=== PATIENT | male | born 1980 | race Two or more races ===

== ENCOUNTER → 2024-08-02 | Outpatient (BNVA) | payer MEDICAID, SELFPAY | END | disposition home or self-care (01) | PROVIDERS: PCP Registered Nurse Community Health; Referring Provider Registered Nurse Community Health; Visit Provider Urology | DX: N52.9 Male erectile dysfunction, unspecified (principal); F52.4 Premature ejaculation; N40.0 Benign prostatic hyperplasia without lower urinary tract symptoms | CPT/HCPCS: 81003; 99212; G0463 ==

== ENCOUNTER 2024-11-04 12:09 | Emergency (ER) | payer MEDICAID, SELFPAY ==
[2024-11-04 12:10] VITALS: BMI 28.3
[2024-11-04 12:38] VITALS: BP 120/78; PULSE 121; RESP 19; TEMP 39.6; O2SAT 97
--- NOTE | 2024-11-04 12:45 | XR_ITS ---
Examination: CT abdomen and pelvis without contrast. Coronal 3-D reconstructions. Sagittal 2-D reconstructions. Date and time of exam:November 04, 2024, 1419 hours, comparison August 12, 2010 INDICATIONS: Bilateral flank pain today, history kidney stones CTDI: vol (mGy): 6.54 DLP: (mGycm): 421 Technique: Axial images of the abdomen have been obtained, 3 mm slice thickness Intravenous contrast material has not been administered. Low dose protocols were performed. One or more of the following dose reduction techniques were used; automated exposure control, adjustment of the mA and/or KV according to patient size, use of iterative reconstruction technique. Findings: No focal liver or splenic lesion No gallstones No pancreatic or adrenal mass Numerous bilateral renal calculi ranging in size from 2 to 6 mm, no hydronephrosis or ureteral calculi Aorta normal size Normal appendix No bowel obstruction or diverticulitis No bladder mass or bladder calculi Transverse prostate dimension 4.9 cm IMPRESSION: Numerous bilateral nonobstructing renal calculi
[2024-11-04] MEDS: SODIUM CHLORIDE 0.9% 1000 ML 1,000 ML 999 ML IV (13:04)
[2024-11-04 13:23] LABS: Basophils # (Auto) 0.0 Thou/mm3 (0.0-0.2); Basophils % (Auto) 0 % (0-2.5); Eosinophils # (Auto) 0.0 Thou/mm3 (0.0-0.5); Eosinophils % (Auto) 0 % (0-10); Hematocrit 48.0 % (41.0-53.0); Hemoglobin 16.6 g/dL (13.5-16.0); Immature Granulocytes Auto 0.03 Thou/mm3 (0.00-0.00); Lymphocytes # (Auto) 0.7 Thou/mm3 (1.0-4.8); Lymphocytes % (Auto) 7 % (10-50); Mean Corpuscular HGB Conc 34.6 g/dl (31.0-37.0); Mean Corpuscular Hemoglobin 30.7 pg (25.0-35.0); Mean Corpuscular Volume 89 fL (80-100); Monocytes # (Auto) 0.5 Thou/mm3 (0.0-0.8); Monocytes % (Auto) 6 % (0-12); Neutrophils # (Auto) 7.5 Thou/mm3 (1.8-7.7); Neutrophils % (Auto) 86 % (37-80); Nucleated Red Blood Cell # 0.00 Thou/mm3 (0.00-0.00); Nucleated Red Blood Cell % 0 /100 WBC (0); Platelet Count 177 Thou/mm3 (140-440); RDW Standard Deviation 39.2 fL (35.1-43.9); Red Blood Count 5.41 Miln/mm3 (4.50-5.90); White Blood Count 8.8 Thou/mm3 (3.8-10.6)
[2024-11-04 13:35] LABS: Collection Type, Urine Clean Catch; Squamous Epithelial Cell,Urine 0 /hpf (0-5)
[2024-11-04 13:38] LABS: Alanine Aminotransferase 25 U/L (10-49); Albumin, Serum 4.5 gm/dL (3.5-5.0); Albumin/Globulin Ratio 1.6 (1.2-2.2); Alkaline Phosphatase 91 U/L (46-116); Amylase 58 U/L (30-118); Anion Gap 10 (7-16); Aspartate Amino Transferase 20 U/L (0-34); BUN/Creatinine Ratio 11 Ratio (12-20); Bilirubin,Total 0.7 mg/dL (0.3-1.2); Blood Urea Nitrogen 10 mg/dL (9-23); Calcium 9.6 mg/dL (8.3-10.6); Calcium (Corrected) 9.6 mg/dL (8.5-10.1); Carbon Dioxide 24.2 mMol/L (20.0-31.0); Chloride 105 mMol/L (98-107); Creatinine (Component) 0.9 mg/dL (0.6-1.3); Estimated Creatinine Clearance 112.1 mL/min (>60); Globulin 2.9 gm/dL (2.3-3.5); Glucose 114 mg/dL (74-106); Osmolality,Calculated 277 (275-295); Potassium 3.5 mMol/L (3.4-5.1); Sodium 139 mMol/L (136-145); Total Protein 7.4 gm/dL (5.7-8.2); eGFR > 60 See Note
[2024-11-04 13:57] LABS: Bilirubin,Urine Negative (Negative); Blood,Urine 2+ (Negative); Clarity,Urine Clear (Clear/Hazy); Color,Urine Yellow (Lt Yel-Yel); Glucose, Urine Negative (Negative); Ketones,Urine 3+ (Negative); Leukocyte Esterase,Urine Negative (Negative); Nitrite,Urine Negative (Negative); PH,Urine 5.5 (5.0-7.0); Protein,Urine Trace (Neg - Trace); RBC,Urine 7 /hpf (0-3); Specific Gravity,Urine 1.027 (1.001-1.035); Urobilinogen,Urine Negative mg/dL (0.0-1.0); WBC,Urine 1 /hpf (0-5)
[2024-11-04 14:36] VITALS: BP 107/72; PULSE 108; RESP 20; TEMP 38.7; O2SAT 99
[2024-11-04 14:54] VITALS: TEMP 38.7
[2024-11-04] MEDS: ACETAMINOPHEN 500 MG TABLET 1000 MG PO (14:54)
[2024-11-04 16:11] VITALS: TEMP 37.1
[2024-11-04] MEDS: MORPHINE SULF INJ 4 MG/ML VIAL IM (16:19)
[2024-11-04] MEDS: TAMSULOSIN HCL 0.4 MG CAPSULE PO (16:20)
[2024-11-04] MEDS: ONDANSETRON INJ 2 MG/ML INJ 2 ML 4 MG IM (16:20)
--- NOTE | 2024-11-04 16:42 | PD.EDABDPN ---
ED Abdominal Pain RME/HPI General Chief Complaint: Back Pain/Injury Stated complaint: BACK PAIN, CHILLS Time seen by provider: 11/04/24 12:31 Arrival date/time: 11/04/24 12:09 This is a case of 44-year-old male with no medical history came in in the emergency room due to right flank pain radiating to the lower back and right side of the abdomen patient had history of kidney stone associated symptoms fever and chills persistence of the symptoms this patient decided to sought consult here in the emergency room Limitations: no limitations Related Data Home Medications ?Medication ?Instructions ?Recorded ?Confirmed paroxetine HCl 10 mg tablet (Paxil) 10 mg PO QDAY 08/03/23 08/02/24 Previous Rx's ?Medication ?Instructions ?Recorded cephalexin 500 mg capsule 500 mg PO QID #40 caps 11/04/24 hydrocodone 5 mg-acetaminophen 325 1 tab PO Q6H PRN pain #20 tabs 11/04/24 mg tablet ondansetron 4 mg disintegrating 4 mg PO Q8H PRN nausea and 11/04/24 tablet vomiting #20 tabs tamsulosin 0.4 mg capsule (Flomax) 0.4 mg PO QDAY #10 caps 11/04/24 Allergies Allergy/AdvReac Type Severity Reaction Status Date / Time No Known Allergies Allergy Verified 11/04/24 12:12 Review of Systems Review of Systems Systems Reviewed: All systems reviewed, normal except as documented Constitutional Constitutional: Reports system reviewed and no additional complaints, except as documented and Reports as per HPI Cardiovascular Cardiovascular: Reports system reviewed and no additional complaints, except as documented and Reports as per HPI Respiratory Respiratory: Reports system reviewed and no additional complaints, except as documented and Reports as per HPI Gastrointestinal Gastrointestinal: Reports system reviewed and no additional complaints, except as documented and Reports as per HPI Genitourinary Genitourinary: Reports system reviewed and no additional complaints, except as documented, Reports as per HPI, Denies change in libido, Denies difficulty urinating, Denies difficulty with ejaculations, Denies dysuria, Denies erectile dysfunction, Reports flank pain, Denies genital lesions, Denies genital pain, Denies hematospermia, Denies hematuria, Denies nocturia, Denies oliguria, Denies painful ejaculations, Denies penile discharge, Denies scrotal swelling, Denies testicular mass, Denies testicular pain, Denies urinary frequency, Denies urinary hesitancy, Denies urinary incontinence and Denies urinary urgency Musculoskeletal Musculoskeletal: Reports system reviewed and no additional complaints, except as documented and Reports as per HPI Neurologic Neurologic: Reports system reviewed and no additional complaints, except as documented and Reports as per HPI Psychiatric Psychiatric: Denies change in libido Endocrine Endocrine: Denies change in libido Past Medical History Past Medical History CARDIAC: Negative Congestive Heart Failure RESPIRATORY: Negative Chronic Obstructive Pulmonary Disease (COPD) GENITOURINARY: Negative Renal Disease ENDOCRINE: Negative Diabetes Mellitus Type 1 or Diabetes Mellitus Type 2 OTHER HISTORY: Negative Blood Transfusions, Blood Transfusion Reaction or Anesthesia Reactions Social History SMOKING STATUS: Never smoker ED Exam General Limitations: Present no limitations General appearance: Present alert, in no apparent distress and other (Patient is awake alert oriented not in distress nontoxic looking well-hydrated well-nourished) Head Head exam: Present atraumatic, normocephalic and normal inspection Eye Eye exam: Present normal appearance, PERRL and EOMI ENT ENT exam: Present normal exam, normal oropharynx and mucous membranes moist; Absent mucous membranes dry, TM's normal bilaterally or normal external ear exam Neck Neck exam: Present normal inspection, full ROM, trachea midline and other (Negative for meningeal sign); Absent tenderness, meningismus, lymphadenopathy or thyromegaly Chest Chest inspection: Present normal inspection and symmetric chest wall rise; Absent tenderness Respiratory Respiratory exam: Present normal lung sounds bilaterally; Absent respiratory distress, wheezes, stridor, accessory muscle use or prolonged expiratory phase Cardiovascular Cardiovascular exam: Present regular rate, normal rhythm and normal heart sounds; Absent bradycardia, tachycardia, irregular rhythm, systolic murmur or diastolic murmur Abdominal Exam Abdominal exam: Present soft, tenderness (Mild tenderness on both flank no guarding no rebound no rigidity negative psoas negative straight and negative MCBURNEY's negative Segovia sign negative CVA tenderness) and normal bowel sounds; Absent distention, guarding, rebound, rigidity, diminished bowel sounds, hyperactive bowel sounds, hypoactive bowel sounds or organomegaly Extremities Exam Extremities exam: Present normal inspection and full ROM Back Exam Back exam: Present normal inspection and full ROM; Absent tenderness, CVA tenderness (R), CVA tenderness (L), muscle spasm, paraspinal tenderness, vertebral tenderness, sciatic notch tenderness (R), sciatic notch tenderness (L), straight leg raise (R) or straight leg raise (L) Neurological Exam Neurological exam: Present alert, oriented X3, CN II-XII intact, normal gait and reflexes normal; Absent motor sensory deficit Psychiatric Psychiatric exam: Present normal affect and normal mood Skin Skin exam: Present warm, dry, intact, normal color and other (Excellent skin turgor) Course Quality Measures none Orders Category Date Time Status Bedside COVID-19 Antigen Test NOW Care 11/04/24 12:45 Active Bedside Influenza A&B Antigen Test NOW Care 11/04/24 12:[address] abdomen pelvis wo con Stat Exams 11/04/24 12:45 Completed Amylase Stat Lab 11/04/24 13:01 Completed CBC Stat Lab 11/04/24 13:01 Completed Comprehensive Metabolic Panel Stat Lab 11/04/24 13:01 Completed Urinalysis Stat Lab 11/04/24 13:28 Completed Acetaminophen Tab [Tylenol ES Tab] Med 11/04/24 13:22 Discontinued 1,000 mg PO X1 ONE Ketorolac Inj [Toradol Inj] Med 11/04/24 12:45 Discontinued 30 mg IVP X1 ONE Morphine* Inj Med 11/04/24 16:07 Discontinued 4 mg IM X1 ONE Morphine* Inj Med 11/04/24 12:46 Discontinued 4 mg IVP X1 ONE Ondansetron Inj [Zofran Inj] Med 11/04/24 16:07 Discontinued 4 mg IM X1 ONE Ondansetron Inj [Zofran Inj] Med 11/04/24 12:45 Discontinued 4 mg IVP X1 ONE Sodium Chloride 0.9% 1000 ml [Ns] 1,000 ml Med 11/04/24 12:45 Discontinued IV 999 mls/hr Tamsulosin HCl [Flomax] Med 11/04/24 16:06 Discontinued 0.4 mg PO X1 ONE Vital Signs Vital signs: Vital Signs Temperature 103.2 F H 11/04/24 12:38 Pulse Rate 121 H 11/04/24 12:38 Respiratory Rate 19 11/04/24 12:38 Blood Pressure 120/78 11/04/24 12:38 Pulse Oximetry (%) 97 11/04/24 12:38 Oxygen Delivery Method Room Air 11/04/24 12:38 Oxygen saturation is 97% in room air patient COVID and flu is negative patient was given Tylenol and hydration after 30 minutes patient was reassessed temperature noted to be 99.5 and patient is nontachycardic at 95 patient oxygen saturation is 97% in room Abdominal Pain MDM MDM Narrative MDM Narrative:: This is a case of 44-year-old male with no medical history came in in the emergency room due to right flank pain radiating to the lower back and right side of the abdomen patient had history of kidney stone associated symptoms fever and chills persistence of the symptoms this patient decided to sought consult here in the emergency room physical examination patient is awake alert oriented not in distress nontoxic looking well-hydrated well-nourished abdominal exam is benign nonsurgical no guarding no rebound no rigidity with mild tenderness on both flanks negative psoas negative straight or negative Rovsing's negative McBurney's negative Segovia sign negative CVA tenderness Bladder is not distended not tender back exam are normal no signs and symptoms of cauda equina blood test showed no leukocytosis no anemia kidney liver function is normal no electrolyte imbalance urinalysis is normal CT scan showed multiple nephrolithiasis but not obstructive based on my physical examination and history patient noted to have nephrolithiasis it is not infected patient although have fever but no leukocytosis at this point patient was given a bolus of normal saline morphine and Toradol for pain and Zofran for vomiting and Flomax patient was also prescribed with the medication patient will follow-up with PCP in 2 days for reevaluation and to be referred to urologist for further evaluation and treatment of nephrolithiasis for any recurrence persistent worsening symptoms return to the emergency room immediately or call 911 Patient was discharged with comfortable condition walking with stable gait. Patient verbalized no further complains explained diagnosis and answered patient question. Patient is comfortable with the proposed management plan including the need to follow up with his/her primary care physician and any specialist if applicable Discussed patient for any urgent condition or worsening sx, He/She needed to go to emergency room immediately or call 911. Patient acknowledge the responsibility to follow up as instructed and to monitor her/his symptoms. For any persistence of the symptoms for more than 3-5 days return precaution advised. Discussed the result of the test and was given printed discharge instruction Patient data External records reviewed:: [facility] previous records Clinical information provided by:: patient Social determinants that could affect healthcare access:: none Patient has the following chronic illnesses:: None How is presenting disease/condition affected by chronic disease/condition?: no chronic disease Evaluation data The following diagnostics were reviewed and interpreted by me:: lab results and radiology exam(s) Lab and/or radiology exams considered but not ordered:: Reviewed Interpretation Summary: Reviewed Medications / Prescriptions Medications or Prescriptions considered but not ordered:: Given Medication administrations:: Medication Administration History Discontinued Medications Acetaminophen (Acetaminophen 500 Mg Tablet) 1,000 mg PO X1 ONE Stop: 11/04/24 13:23 Last Admin: 11/04/24 14:54 Dose: 1,000 mg Documented By: JAZMINE Sodium Chloride (Ns) 1,000 mls @ 999 mls/hr IV .Q1H1M ONE Stop: 11/04/24 13:45 Last Admin: 11/04/24 13:04 Dose: 999 mls/hr Documented By: JAZMINE Ketorolac Tromethamine (Ketorolac Inj 30 Mg/Ml Vial) 30 mg IVP X1 ONE Stop: 11/04/24 12:46 Morphine Sulfate (Morphine Sulf Inj 4 Mg/Ml Vial) 4 mg IVP X1 ONE Stop: 11/04/24 12:47 Morphine Sulfate (Morphine Sulf Inj 4 Mg/Ml Vial) 4 mg IM X1 ONE Stop: 11/04/24 16:08 Last Admin: 11/04/24 16:19 Dose: 4 mg Documented By: JAZMINE Ondansetron HCl (Ondansetron Inj 2 Mg/Ml Inj 2 Ml) 4 mg IVP X1 ONE; Protocol Stop: 11/04/24 12:46 Ondansetron HCl (Ondansetron Inj 2 Mg/Ml Inj 2 Ml) 4 mg IM X1 ONE; Protocol Stop: 11/04/24 16:08 Last Admin: 11/04/24 16:20 Dose: 4 mg Documented By: JAZMINE Tamsulosin HCl (Tamsulosin Hcl 0.4 Mg Capsule) 0.4 mg PO X1 ONE Stop: 11/04/24 16:07 Last Admin: 11/04/24 16:20 Dose: 0.4 mg Documented By: JAZMINE Given Consultations Consultation(s) initiated? (list below): No Diagnosis Differential diagnosis abdominal pain: abdominal pain, acute appendicitis, calculus of kidney, diverticulitis and gastroenteritis Most likely diagnosis given after review of the tests above:: Nephrolithiasis Admission Indicated Admission indicated?: not indicated Explain why admission is indicated or not indicated:: Not indicated Admission Request Was there a request for admission?: No Admission Attestation Admission request attestation: Not indicated Disposition Plan Disposition Plan: Discharge Discharge Attestation Discharge Attestation: The patient and all family members were given an opportunity to ask questions and understood the discharge instructions. Discharge instructions specifically effects, indications for sooner follow up or return to the emergency department, and the expected course of current diagnosis. Patient condition: Stable Discharge Plan Plan Patient Disposition: HOME (Self Care) Patient condition on transfer: Stable Prescriptions/Referrals Prescriptions/Med Rec: New hydrocodone-acetaminophen 5-325 mg tablet 1 tab PO Q6H MDD max 4 tabs per day PRN (Reason: pain) Qty: 20 0RF tamsulosin [Flomax] 0.4 mg capsule 0.4 mg PO QDAY Qty: 10 0RF cephalexin 500 mg capsule 500 mg PO QID Qty: 40 0RF ondansetron 4 mg tablet,disintegrating 4 mg PO Q8H PRN (Reason: nausea and vomiting) Qty: 20 0RF No Action paroxetine HCl [Paxil] 10 mg tablet 10 mg PO QDAY Referrals: Irvin Sarmiento MD [Physician, Urology] - 11/04/24 Referral Note: For further evaluation and treatment of multiple nephrolithiasis Problem List Clinical Impression: Abdominal pain, Nephrolithiasis Patient/Caregiver Discharge Instructions Education Materials: Abdominal Pain, Kidney Stones Your Evaluation Additional Instructions: Follow-up with your primary care physician in 2 days for reevaluation and to be referred to urologist for further evaluation and treatment of nephrolithiasis worsening symptoms or any emergent condition call 911 or go to the nearest emergency room take your medication as directed finish the course of antibiotic keep hydrated Pedialyte Gatorade for hydration Print Language: Chinese Stand Alone Forms: Mahi Award Info., Patient Portal Info Letter PA/IMAN Supervising Physician TOYIN/IMAN Supervising Physician: dr shoemaker
== END 2024-11-04 17:13 | disposition home or self-care (01) ==
PROVIDERS: Nurse Practitioner Family; Emergency Provider Family Medicine; PCP Registered Nurse Community Health
DX: N20.0 Calculus of kidney (principal)
CPT/HCPCS: 36415; 74176; 80053; 81001; 82150; 85025; 87400; 87811; 96372; 99284; J2270; J2405; J7030; A9270

== ENCOUNTER 2024-11-23 21:39 | Emergency (ER) | payer MEDICAID, SELFPAY ==
[2024-11-23 21:40] VITALS: BMI 29.9
[2024-11-23 22:07] VITALS: BP 125/82; PULSE 81; RESP 20; TEMP 37.8; O2SAT 95
--- NOTE | 2024-11-23 22:18 | XR_ITS ---
Examination: CT abdomen and pelvis without contrast. Coronal 3-D reconstructions. Sagittal 2-D reconstructions. Date and time of exam: November 23, 2024 1030 hours INDICATIONS: Flank pain 1 day CTDI: vol (mGy): 6.77 DLP: (mGycm): 436 Technique: Axial images of the abdomen have been obtained, 3 mm slice thickness Intravenous contrast material has not been administered. Low dose protocols were performed. One or more of the following dose reduction techniques were used; automated exposure control, adjustment of the mA and/or KV according to patient size, use of iterative reconstruction technique. Findings: No focal liver or splenic lesions No gallstones No pancreatic or adrenal mass Numerous 1 to 2 mm renal calculi, no hydronephrosis or ureteral calculi Aorta normal size Normal appendix No bladder mass or bladder calculi IMPRESSION: Multiple small bilateral nonobstructing renal calculi
[2024-11-23 22:30] LABS: Collection Type, Urine Clean Catch; Squamous Epithelial Cell,Urine 0 /hpf (0-5)
[2024-11-23 22:36] LABS: Bilirubin,Urine Negative (Negative); Blood,Urine 1+ (Negative); Clarity,Urine Clear (Clear/Hazy); Color,Urine Colorless (Lt Yel-Yel); Glucose, Urine Negative (Negative); Ketones,Urine Negative (Negative); Leukocyte Esterase,Urine Negative (Negative); Nitrite,Urine Negative (Negative); PH,Urine 6.0 (5.0-7.0); Protein,Urine Negative (Neg - Trace); RBC,Urine 1 /hpf (0-3); Specific Gravity,Urine 1.011 (1.001-1.035); Urobilinogen,Urine Negative mg/dL (0.0-1.0); WBC,Urine < 1 /hpf (0-5)
[2024-11-23 22:57] LABS: Basophils # (Auto) 0.0 Thou/mm3 (0.0-0.2); Basophils % (Auto) 1 % (0-2.5); Eosinophils # (Auto) 0.1 Thou/mm3 (0.0-0.5); Eosinophils % (Auto) 2 % (0-10); Hematocrit 46.1 % (41.0-53.0); Hemoglobin 15.9 g/dL (13.5-16.0); Immature Granulocytes Auto 0.01 Thou/mm3 (0.00-0.00); Lymphocytes # (Auto) 1.2 Thou/mm3 (1.0-4.8); Lymphocytes % (Auto) 25 % (10-50); Mean Corpuscular HGB Conc 34.5 g/dl (31.0-37.0); Mean Corpuscular Hemoglobin 30.6 pg (25.0-35.0); Mean Corpuscular Volume 89 fL (80-100); Monocytes # (Auto) 0.9 Thou/mm3 (0.0-0.8); Monocytes % (Auto) 18 % (0-12); Neutrophils # (Auto) 2.7 Thou/mm3 (1.8-7.7); Neutrophils % (Auto) 54 % (37-80); Nucleated Red Blood Cell # 0.00 Thou/mm3 (0.00-0.00); Nucleated Red Blood Cell % 0 /100 WBC (0); Platelet Count 202 Thou/mm3 (140-440); RDW Standard Deviation 38.2 fL (35.1-43.9); Red Blood Count 5.20 Miln/mm3 (4.50-5.90); White Blood Count 4.9 Thou/mm3 (3.8-10.6)
[2024-11-23 23:18] LABS: Alanine Aminotransferase 45 U/L (10-49); Albumin, Serum 5.0 gm/dL (3.5-5.0); Albumin/Globulin Ratio 1.8 (1.2-2.2); Alkaline Phosphatase 90 U/L (46-116); Anion Gap 9 (7-16); Aspartate Amino Transferase 32 U/L (0-34); BUN/Creatinine Ratio 11 Ratio (12-20); Bilirubin,Total 0.7 mg/dL (0.3-1.2); Blood Urea Nitrogen 12 mg/dL (9-23); Calcium 10.1 mg/dL (8.3-10.6); Calcium (Corrected) 10.1 mg/dL (8.5-10.1); Carbon Dioxide 27.4 mMol/L (20.0-31.0); Chloride 104 mMol/L (98-107); Creatinine (Component) 1.1 mg/dL (0.6-1.3); Estimated Creatinine Clearance 91.1 mL/min (>60); Globulin 2.8 gm/dL (2.3-3.5); Glucose 84 mg/dL (74-106); Lipase 30 U/L (12-53); Osmolality,Calculated 278 (275-295); Potassium 4.1 mMol/L (3.4-5.1); Sodium 140 mMol/L (136-145); Total Protein 7.8 gm/dL (5.7-8.2); eGFR > 60 See Note
[2024-11-23] MEDS: MORPHINE SULF INJ 4 MG/ML VIAL IM (23:42)
[2024-11-23] MEDS: KETOROLAC INJ 60 MG/2 ML VIAL 30 MG IM (23:43)
[2024-11-23] MEDS: ONDANSETRON ODT 4 MG TABRAP PO (23:43)
--- NOTE | 2024-11-24 00:04 | PD.EDABDPN ---
ED Abdominal Pain RME/HPI General Chief Complaint: Back Pain/Injury Stated complaint: BACK PAIN SINCE 0500, HX KIDNEY STONES Time seen by provider: 11/23/24 21:45 Arrival date/time: 11/23/24 21:39 This is a case of 44-year-old male with history of kidney stone came in in the emergency room due to bilateral flank pain radiating to lower back for 3 days associated with nausea vomiting worsening of the symptoms thus patient decided to sought consult here in the emergency room Limitations: no limitations Related Data Home Medications ?Medication ?Instructions ?Recorded ?Confirmed paroxetine HCl 10 mg tablet (Paxil) 10 mg PO QDAY 08/03/23 08/02/24 Previous Rx's ?Medication ?Instructions ?Recorded cephalexin 500 mg capsule 500 mg PO QID #40 caps 11/04/24 hydrocodone 5 mg-acetaminophen 325 1 tab PO Q6H PRN pain #20 tabs 11/04/24 mg tablet ondansetron 4 mg disintegrating 4 mg PO Q8H PRN nausea and 11/04/24 tablet vomiting #20 tabs tamsulosin 0.4 mg capsule (Flomax) 0.4 mg PO QDAY #10 caps 11/04/24 hydrocodone 5 mg-acetaminophen 325 1 tab PO Q6H PRN pain #16 tabs 11/23/24 mg tablet ondansetron 4 mg disintegrating 4 mg PO Q8H #20 tabs 11/23/24 tablet tamsulosin 0.4 mg capsule (Flomax) 0.4 mg PO QDAY #10 caps 11/23/24 Allergies Allergy/AdvReac Type Severity Reaction Status Date / Time No Known Allergies Allergy Verified 11/23/24 21:40 Review of Systems Review of Systems Systems Reviewed: All systems reviewed, normal except as documented Constitutional Constitutional: Reports system reviewed and no additional complaints, except as documented and Reports as per HPI Cardiovascular Cardiovascular: Reports system reviewed and no additional complaints, except as documented and Reports as per HPI Respiratory Respiratory: Reports system reviewed and no additional complaints, except as documented and Reports as per HPI Gastrointestinal Gastrointestinal: Reports system reviewed and no additional complaints, except as documented and Reports as per HPI Genitourinary Genitourinary: Reports system reviewed and no additional complaints, except as documented and Reports as per HPI Musculoskeletal Musculoskeletal: Reports system reviewed and no additional complaints, except as documented and Reports as per HPI Neurologic Neurologic: Reports system reviewed and no additional complaints, except as documented and Reports as per HPI Past Medical History Past Medical History CARDIAC: Negative Congestive Heart Failure RESPIRATORY: Negative Chronic Obstructive Pulmonary Disease (COPD) GENITOURINARY: Negative Renal Disease ENDOCRINE: Negative Diabetes Mellitus Type 1 or Diabetes Mellitus Type 2 OTHER HISTORY: Negative Blood Transfusions, Blood Transfusion Reaction or Anesthesia Reactions Social History SMOKING STATUS: Never smoker ED Exam General Limitations: Present no limitations General appearance: Present alert, in no apparent distress and other (Patient is awake alert oriented not in distress nontoxic looking well-hydrated well-nourished) Head Head exam: Present atraumatic, normocephalic and normal inspection Eye Eye exam: Present normal appearance, PERRL and EOMI ENT ENT exam: Present normal exam, normal oropharynx and mucous membranes moist Neck Neck exam: Present normal inspection, full ROM and trachea midline; Absent tenderness, meningismus, lymphadenopathy or thyromegaly Chest Chest inspection: Present normal inspection and symmetric chest wall rise; Absent tenderness Respiratory Respiratory exam: Present normal lung sounds bilaterally; Absent respiratory distress, wheezes, stridor, accessory muscle use or prolonged expiratory phase Cardiovascular Cardiovascular exam: Present regular rate, normal rhythm and normal heart sounds; Absent bradycardia, tachycardia, irregular rhythm, systolic murmur or diastolic murmur Abdominal Exam Abdominal exam: Present soft, tenderness (Mild tenderness of both flanks no CVA tenderness) and normal bowel sounds; Absent distention, guarding, rebound, rigidity, diminished bowel sounds, hyperactive bowel sounds, hypoactive bowel sounds, organomegaly, psoas sign, obturator sign, Segovia's sign, Rovsing's sign, tenderness at McBurney's Point, ascites or hernia Extremities Exam Extremities exam: Present normal inspection and full ROM Back Exam Back exam: Present normal inspection and full ROM; Absent tenderness, CVA tenderness (R), CVA tenderness (L), muscle spasm, paraspinal tenderness, vertebral tenderness, rashes, sciatic notch tenderness (R), sciatic notch tenderness (L), straight leg raise (R) or straight leg raise (L) Neurological Exam Neurological exam: Present alert, oriented X3, CN II-XII intact, normal gait and reflexes normal; Absent motor sensory deficit Psychiatric Psychiatric exam: Present normal affect and normal mood Skin Skin exam: Present warm, dry, intact, normal color and other (Excellent skin turgor) Course Quality Measures none Orders Category Date Time Status CT abdomen pelvis wo con Stat Exams 11/23/24 22:18 Completed CBC Stat Lab 11/23/24 22:39 Completed Comprehensive Metabolic Panel Stat Lab 11/23/24 22:39 Completed Lipase Stat Lab 11/23/24 22:39 Completed Urinalysis Stat Lab 11/23/24 22:23 Completed Ketorolac Inj [Toradol Inj] Med 11/23/24 22:18 Discontinued 30 mg IM X1 ONE Morphine* Inj Med 11/23/24 22:18 Discontinued 4 mg IM X1 ONE Ondansetron Odt [Zofran Odt] Med 11/23/24 22:18 Discontinued 4 mg PO X1 ONE Vital Signs Vital signs: Vital Signs Temperature 100.1 F 11/23/24 22:07 Pulse Rate 81 11/23/24 22:07 Respiratory Rate 20 11/23/24 22:07 Blood Pressure 125/82 11/23/24 22:07 Pulse Oximetry (%) 95 11/23/24 22:07 Oxygen Delivery Method Room Air 11/23/24 22:07 Oxygen saturation is 95% in room air patient temperature was rechecked and noted to be 99 Abdominal Pain MDM MDM Narrative MDM Narrative:: This is a case of 44-year-old male with history of kidney stone came in in the emergency room due to bilateral flank pain radiating to lower back for 3 days associated with nausea vomiting worsening of the symptoms thus patient decided to sought consult here in the emergency room physical examination patient is awake alert oriented not in distress nontoxic looking well-hydrated well-nourished noted bilateral flank tenderness but no CVA tenderness no guarding no rebound no rigidity negative psoas negative obturator negative Rovsing's negative McBurney's negative Segovia sign negative CVA tenderness back exam is normal the rest of the physical examination neurological exam is normal and unremarkable blood test showed no leukocytosis no anemia kidney and liver function is normal no electrolyte imbalance patient lipase is normal urinalysis is normal CT scan showed bilateral kidney stone patient was given a dose of Toradol morphine and Zofran which patient condition markedly improved and resolved he will follow-up with PCP and to see urologist for further evaluation and treatment of bilateral nephrolithiasis for any recurrence persistent worsening symptoms or any emergent concern he will return to the emergency room immediately or call 911 he was prescribed Flomax [place] and Zofran Patient was discharged with comfortable condition walking with stable gait. Patient verbalized no further complains explained diagnosis and answered patient question. Patient is comfortable with the proposed management plan including the need to follow up with his/her primary care physician and any specialist if applicable Discussed patient for any urgent condition or worsening sx, He/She needed to go to emergency room immediately or call 911. Patient acknowledge the responsibility to follow up as instructed and to monitor her/his symptoms. For any persistence of the symptoms for more than 3-5 days return precaution advised. Discussed the result of the test and was given printed discharge instruction Patient data External records reviewed:: [facility] previous records Clinical information provided by:: patient Social determinants that could affect healthcare access:: none Patient has the following chronic illnesses:: None How is presenting disease/condition affected by chronic disease/condition?: no chronic disease Evaluation data The following diagnostics were reviewed and interpreted by me:: lab results and radiology exam(s) Lab and/or radiology exams considered but not ordered:: Reviewed Interpretation Summary: Reviewed Medications / Prescriptions Medications or Prescriptions considered but not ordered:: Given Medication administrations:: Medication Administration History Discontinued Medications Ketorolac Tromethamine (Ketorolac Inj 60 Mg/2 Ml Vial) 30 mg IM X1 ONE Stop: 11/23/24 22:19 Last Admin: 11/23/24 23:43 Dose: 30 mg Documented By: BD Morphine Sulfate (Morphine Sulf Inj 4 Mg/Ml Vial) 4 mg IM X1 ONE Stop: 11/23/24 22:19 Last Admin: 11/23/24 23:42 Dose: 4 mg Documented By: BD Ondansetron HCl (Ondansetron Odt 4 Mg Tabrap) 4 mg PO X1 ONE; Protocol Stop: 11/23/24 22:19 Last Admin: 11/23/24 23:43 Dose: 4 mg Documented By: BD Given Consultations Consultation(s) initiated? (list below): No Diagnosis Differential diagnosis abdominal pain: abdominal pain, acute appendicitis, calculus of kidney and diverticulitis Most likely diagnosis given after review of the tests above:: Nephrolithiasis Admission Indicated Admission indicated?: not indicated Explain why admission is indicated or not indicated:: Not indicated Admission Request Was there a request for admission?: No Admission Attestation Admission request attestation: Not indicated Disposition Plan Disposition Plan: Discharge Discharge Attestation Discharge Attestation: The patient and all family members were given an opportunity to ask questions and understood the discharge instructions. Discharge instructions specifically effects, indications for sooner follow up or return to the emergency department, and the expected course of current diagnosis. Patient condition: Stable Discharge Plan Plan Patient Disposition: HOME (Self Care) Patient condition on transfer: Stable Prescriptions/Referrals Prescriptions/Med Rec: New tamsulosin [Flomax] 0.4 mg capsule 0.4 mg PO QDAY Qty: 10 0RF hydrocodone-acetaminophen 5-325 mg tablet 1 tab PO Q6H MDD max 4 tabs per day PRN (Reason: pain) Qty: 16 0RF ondansetron 4 mg tablet,disintegrating 4 mg PO Q8H Qty: 20 0RF No Action paroxetine HCl [Paxil] 10 mg tablet 10 mg PO QDAY hydrocodone-acetaminophen 5-325 mg tablet 1 tab PO Q6H MDD max 4 tabs per day PRN (Reason: pain) Qty: 20 0RF tamsulosin [Flomax] 0.4 mg capsule 0.4 mg PO QDAY Qty: 10 0RF cephalexin 500 mg capsule 500 mg PO QID Qty: 40 0RF ondansetron 4 mg tablet,disintegrating 4 mg PO Q8H PRN (Reason: nausea and vomiting) Qty: 20 0RF Referrals: No Primary/Family,Physician [Primary Care Provider] - In 1 week Problem List Clinical Impression: Bilateral nephrolithiasis Patient/Caregiver Discharge Instructions Education Materials: Kidney Stones: Are You at Risk?, Identifying Kidney Stones Additional Instructions: Follow-up with your primary care physician in 2 days for reevaluation and to be referred to urologist for further evaluation and treatment of bilateral nephrolithiasis recurrence persistent worsening symptoms or any emergent concern call 911 or go to the nearest emergency room take your medication as directed increase water intake keep hydrated Pedialyte Gatorade cranberry juice for hydration is advised Print Language: Nicaraguan Stand Alone Forms: [employer] Award Info., Patient Portal Info Letter PA/TRANSACTION ADVISORY SERVICES MANAGER Supervising Physician PA/TRANSACTION ADVISORY SERVICES MANAGER Supervising Physician: Dr. Santos Lutz
== END 2024-11-24 00:04 | disposition home or self-care (01) ==
PROVIDERS: Nurse Practitioner Family; Emergency Provider Emergency Medicine
DX: N20.0 Calculus of kidney (principal)
CPT/HCPCS: 36415; 74176; 80053; 81001; 83690; 85025; 96372; 99284; J1885; J2270; Q0162

== ENCOUNTER → 2024-12-04 | Outpatient (CLI) | payer MEDICAID, SELFPAY ==
--- NOTE | 2024-12-04 11:49 | XR_ITS ---
Examination: Retroperitoneal ultrasound, complete Technique: Multiple high resolution grayscale images of the retroperitoneum obtained, including kidneys and bladder. Exam date and time: December 04, 2024, 11:55 a.m. INDICATIONS: Bilateral flank pain beginning 1 month ago FINDINGS: Right kidney 10.6 cm renal cortex 1.6 cm Multiple renal calculi, the largest in the lower pole 4 mm Left kidney 11.8 cm renal cortex 2.1 cm Multiple calculi, the largest in the upper pole 12 mm Moderate scar formation, no hydronephrosis Contracted urinary bladder Prostate 4.8 x 2.9 x 5.0 cm no prostate nodules IMPRESSION: Bilateral nonobstructing renal calculi Moderate renal scar formation No hydronephrosis
== END | disposition home or self-care (01) ==
DX: N20.0 Calculus of kidney (principal); N28.89 Other specified disorders of kidney and ureter
CPT/HCPCS: 76770